=== PATIENT | female | born 1940 | race Caucasian/White ===

== ENCOUNTER 2016-12-23 08:49 | Day surgery (SDC) | payer MEDICARE, OTHER ==
[~2016-12-23] VITALS: Ht 165.1 cm; Wt 122.1 kg
--- NOTE | 2016-12-29 10:10 | OR ---
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 PROCEDURE: Laparoscopic adjustable gastric band removal. FILM RENTAL CLERK: Ephraim Vargas MD, whose assistance was necessary for laparoscopic visualization and assistance with tissue retraction. ANESTHESIA: General. ESTIMATED BLOOD LOSS: 10 mL. DESCRIPTION OF PROCEDURE: The patient was taken to the operating room and placed supine on the operating room table. General anesthesia was established. The abdomen was prepped and draped in the standard surgical fashion. A 1.5 cm supraumbilical incision was made in the skin. The fascia was grasped with a Brittany clamp, and a Veress needle was advanced into the peritoneal cavity. Carbon dioxide was used to insufflate the abdomen to 15 mmHg pressure. The Veress needle was withdrawn, and a 15 mm Optiview trocar was placed. Additional 5 mm, right upper quadrant, left upper quadrant, and left lateral ports were placed under visualization. Adhesions to the anterior abdominal wall were taken down to expose the upper abdomen. The band tubing had marked adhesions around this which were freed sharply and with Harmonic Scalpel. This allowed exposure of the buckle of the lap band. Upon exposure, the buckle was then unbuckled. The tubing was divided. Additional adhesiolysis was performed on the fibrous rind around the tunneled tract for the band. This allowed release of the distal obstruction at the gastric band site. The band was then removed from its tunnel and removed without difficulty through the port. The ADMIT: 12/23/2016 RM/LOC: [facility] MR#: [id number] [address] VALERI RAMOS [address] [place] [address] [place] [address] Operative/Delivery Room Report SEX: F AGE: 76 : 1940 area was irrigated and there was no bleeding. The ports removed under visualization without evidence of bleeding. The fascial margin at the 15-mm port site was approximated with the suture passer and an 0 Vicryl tie. The abdomen was allowed to deflate. Next, a transverse scar over the port site was incised. Dissection proceeded sharply down to the port capsule. The port was excised from its capsule with all Ethibond sutures and removed with the tubing completely. This wound was irrigated, closed in the deep tissue with 3-0 Vicryl suture. Skin edges were approximated with 4-0 Monocryl in a subcuticular fashion and Dermabond. Local anesthetic was injected at the incisions. Sponge, needle, and instrument counts were correct at the end of the case. The patient tolerated the procedure well and transferred to the recovery area in stable condition. Primo White MD/ corinne JOB #: [id number] CC: Primo White, Attending Physician Qing Hickman, Family Physician
== END 2016-12-23 16:10 | disposition home or self-care (01) ==
LOC: SSS 08:49
PROC: 0DP64CZ Removal of Extraluminal Device from Stomach, Percutaneous Endoscopic Approach (ICD-10-PCS; principal; 2016-12-23)
DX: K95.09 Other complications of gastric band procedure (principal); R13.10 Dysphagia, unspecified; K22.0 Achalasia of cardia; J45.909 Unspecified asthma, uncomplicated; K21.9 Gastro-esophageal reflux disease without esophagitis; E03.9 Hypothyroidism, unspecified; D64.9 Anemia, unspecified; Z79.899 Other long term (current) drug therapy; Z90.710 Acquired absence of both cervix and uterus; Z90.89 Acquired absence of other organs; Z90.49 Acquired absence of other specified parts of digestive tract; Z98.890 Other specified postprocedural states